=== PATIENT | male | born 1965 | race African-American/Black ===

== ENCOUNTER 2023-06-12 10:27 | Emergency (ER) | payer OTHER ==
[~2023-06-12] VITALS: Ht 167.6 cm; Wt 110.0 kg
[2023-06-12 12:25] VITALS: BP 104/76; PULSE 87; RESP 18; TEMP 97; O2SAT 97
[2023-06-12] MEDS ORDERED: methylPREDNISolone SOD SUCC 125 MG/2 ML VL IM ONE (13:30)
[2023-06-12] MEDS ORDERED: KETOROLAC TROMETH 60MG/2ML VIAL IM ONE (13:30)
== END 2023-06-12 14:23 | disposition home or self-care (01) ==
LOC: ER 10:27
DX: M54.41 Lumbago with sciatica, right side (principal); M79.604 Pain in right leg
CPT/HCPCS: 72110; 96372; 99284; J1885; J2930